=== PATIENT | female | born 1975 | race Caucasian/White ===

== ENCOUNTER 2025-07-15 15:53 | Outpatient (AMB) | payer OTHER, SELFPAY ==
--- NOTE | 2025-07-15 15:54 | A.OFFVIS_ITS ---
Intake Visit Reasons: 1 yr Allergies carbamazepine (From Tegretol) Allergy (Unknown, Verified 07/15/25 15:57) Unknown divalproex sodium (From Depakote) Allergy (Unknown, Verified 07/15/25 15:57) Unknown Sulfa (Sulfonamide Antibiotics) Allergy (Unknown, Verified 07/15/25 15:57) Unknown Medication List - Last Reconciled 07/15/25 by Reyna Hale CNP phenobarbital 64.8 mg (2 x 32.4 mg) PO BEDTIME 90 days HPI Comments Details: She was doing okay. She was taking phenobarbital at bedtime. No medication side effects. No seizures. Sleep was okay. She has a history of seizure disorder for which she is being followed here for 24+ years. She has an idiopathic generalized seizure disorder for which she is taking phenobarbital and has not had any seizures in over 23 years. She has had allergies and reactions to Tegretol and Depakote in the past. [facility] Medical History (Updated 07/15/25 @ 15:56 by Reyna Hale CNP) Seizures Review of Systems Const Denies chills, Denies daytime sleepiness, Denies difficulty sleeping, Denies fatigue, Denies fever(s), Denies frequent falls, Denies headache(s), Denies increased appetite, Denies poor appetite, Denies snoring, Denies weakness, Denies weight gain and Denies weight loss Eyes Denies loss of vision ENT Denies vertigo, Denies dizziness, Denies headache(s) and Denies neck pain Card Denies chest pain at rest, Denies chest pain with activity, Denies syncope, Denies leg edema, Denies palpitations, Denies dyspnea and Denies dyspnea on exertion Resp Denies cough, Denies dyspnea, Denies dyspnea on exertion and Denies snoring GI Denies abdominal pain, Denies constipation, Denies heartburn, Denies diarrhea and Denies nausea Denies urinary frequency, Denies urinary incontinence and Denies urinary urgency Musc Denies abnormal gait, Denies back pain, Denies myalgias, Denies arthralgias, Denies neck pain, Denies numbness and Denies tingling Neuro Denies abnormal gait, Denies vertigo, Denies dizziness, Denies syncope, Denies frequent falls, Denies headache(s), Denies lack of coordination, Denies loss of vision, Denies memory loss, Denies numbness, Denies Other visual disturbances, Denies restless legs, Denies seizure-like activity, Denies tingling, Denies paresthesias, Denies tremor(s) and Denies weakness Psych Denies anxiety, Denies depression, Denies auditory hallucinations, Denies memory loss and Denies visual hallucinations Endo Denies fatigue and Denies palpitations Physical Exam Const Other: General Appearance:? normal, in no acute distress. Heart:? S1, S2 normal, no murmurs. Lungs:? clear anteriorly and posteriorly. Musculoskeletal:? normal. Extremities:? no edema. Psych:? alert, oriented, cognitive function intact, cooperative with exam. Neuro Other: Abnormal Neurological Findings:?none.? Mental Status: alert and oriented X 3. Normal attention, orientation, memory, and affect. Cranial Nerves: Pupils are equal, round, and reactive to light. External ocular muscles are intact. Visual nichole are full, no ptosis. Face is symmetrical, no facial weakness or droop. Facial sensations are normal. Tongue protrudes in midline. Palate elevates symmetrically. Shoulder shrugging is normal Motor Examination: Normal muscle tone, bulk and strength. No atrophy or fasciculations. No drift of the extended upper extremities. DTR 2+. Plantars are flexor. Sensory Exam: Normal light touch, temperature, pinprick, vibration, and joint- position sensations. Rhomberg sign is absent. Coordination: No ataxia. No titubation. Gait Exam: Within normal limits. Cerebellar Signs: [id number] is okay. Extrapyramidal System: No tremor, rigidity with normal facial expressions. No bradykinesia. No bradyphrenia. Normal arm swing and posture. No propulsion or retropulsion. Speech: Normal. Assessment & Plan Assessment & Plan (1) Seizure disorder: Code(s): G40.909 - Epilepsy, unspecified, not intractable, without status epilepticus Category: Medical Plan: Continue phenobarbital 32.4mg 2 tablets at bedtime. Coding Level of Care Code Est Pt Level 3 (97365) Diagnoses Seizure disorder G40.909
--- OUTSIDE RECORDS SUMMARY | 2025-07-15 18:29 | XMS_ITS | Clinical Summary ---
Author Organization [facility] Address [address] [place] [address] Care Team Providers Care Stationary Engineer Refrigeration Name Role Phone Pcp, No Primary Care Provider Unavailabl e Allergies Active Allergy Reactions Criticality Noted Date Comments Carbamazepine GI Intolerance/Nausea/Vomi ting Low 03/16/2023 Sulfa Antibiotics Hives Medium 11/16/2011 Either rash or gi upset Medications PHENobarbital (LUMINAL) 32.4 MG tablet Take 64.8 mg by mouth nightly. 01/13/20 23 Active buPROPion (WELLBUTRIN XL) 300 MG 24 hr tablet bupropion HCl XL 300 mg 24 hr tablet, extended release 01/28/20 23 Active levonorgestrel (MIRENA) 20 mcg/24hr IUD 1 each by Intrauterine route. 01/19/20 21 026 Active levothyroxine (SYNTHROID, LEVOTHROID) 25 MCG tablet levothyroxine 25 mcg tablet 10/27/19 23 Active amitriptyline (ELAVIL) 25 MG tablet 01/28/20 23 Active tobramycin-dexamet hasone (TOBRADEX) 0.3-0.1 % ophthalmic suspensionIndicati ons:Acute bacterial conjunctivitis of left eye Administer 1 drop into the left eye every 4 (four) hours while awake. 5 mL 03/16/20 23 Active Active Problems No known active problems Social History Tobacco Use Types Packs/Day Years Used Date Smoking Tobacco: Never Assessed Comments Unknown Sex and Gender Information Value Date Recorded Sex Assigned at Female 03/16/2023 1:54 PM EDT Legal Sex Female 10:17 AM EDT Gender Identity Female 03/16/2023 1:54 PM EDT Sexual Orientation Choose not to disclose 2022 1:54 PM EDT Last Filed Vital Signs Vital Sign Reading Time Taken Comments Blood Pressure 153/89 03/16/2023 10:57 AM EDT Pulse 86 03/16/2023 10:57 AM EDT Temperature 36.8 C (98.2 F) 03/16/2023 10:57 AM EDT Respiratory Rate 16 03/16/2023 10:57 AM EDT Oxygen Saturation 98% 03/16/2023 10:57 AM EDT Inhaled Oxygen Concentration - - Weight - - Height - - Body Mass Index - - Plan of Treatment Health Maintenance Due Date Last Done Comments Hepatitis C Virus Screening 1973 HIV Screening 1986 DTaP/Tdap/Td Vaccines (1 - Tdap) 1992 Hepatitis B Vaccines (1 of 3 - 19+ 3-dose series) 1992 Pap Smear (Ages 21-65) 1994 Mammogram 2013 Colonoscopy 2018 Pneumococcal Vaccines 50+ (1 of 1 - PCV) 2023 Zoster (Shingles) Vaccine (1 of 2) 2023 Influenza Vaccine 05/23/2025 11/23/2016, 07/20/2015 COVID-19 Vaccine ( season) 2025 10/29/2021, 02/05/2021, 01/14/2021 Insurance [facility] Care Teams Stationary Engineer Refrigeration Relationship Specialty Start Date End Date Pcp, [address] [place] [address] PCP - General 03/01/23
--- OUTSIDE RECORDS SUMMARY | 2025-07-15 18:29 | XMS_ITS | Clinical Summary ---
Author Organization [facility] Address [address] [place] [address] Care Team Providers Care Category Specialist Name Role Phone Jimmy Teresa DO Primary Care Provider [phone] Surgical History Surgery Date Site/Laterality Comments TUBAL LIGATION 2009 PROCEDURE: HISTORICAL TUBAL LIGATION CHOLECYSTECTOMY 2009 PROCEDURE: HISTORICAL CHOLECYSTECTOMY SECTION 2001, 2009 PROCEDURE: HISTORICAL Medical History Medical History Date Comments Seizures (CMS/HCC V24, CMS/HCC V28) DX:Seizures (HCC); COMMENT: last when Dr Briggs ([place]) IUD (intrauterine device) in place 08/2014 DX:IUD (intrauterine device) in place Hypothyroid DX:Hypothyroid Depression DX:Depression Family History Medical History Relation Name Comments Other: brain tumor Aunt maternal Diabetes Father Other: pancreatic cancer Father Diabetes Maternal Grandmother Thyroid disease Mother Asthma Son Breast cancer Neg Hx Colon cancer Neg Hx Ovarian cancer Neg Hx Uterine cancer Neg Hx Relation Name Status Comments Aunt Brother Alive asthma Daughter Alive healthy Father DM Maternal Grandfather Maternal Grandmother Alive DM Mother Alive thyroid Paternal Grandfather Paternal Grandmother Son Alive healthy Social History Tobacco Use Types Packs/Day Years Used Date Smoking Tobacco: Never Smokeless Tobacco: Never Alcohol Use Standard Drinks/Week Comments No 0 (1 standard drink = 0.6 oz pur e alcohol) Comments Unknown Sex and Gender Information Value Date Recorded Sex Assigned at Not on file Legal Sex Female 10:40 AM EST Gender Identity Not on file Sexual Orientation Not on file Obstetrics History Last Filed Vital Signs Vital Sign Reading Time Taken Comments Blood Pressure 131/91 07/21/2023 10:43 AM EDT Pulse 92 07/21/2023 10:43 AM EDT Temperature - - Respiratory Rate - - Oxygen Saturation - - Inhaled Oxygen Concentration - - Weight 66.7 kg (147 lb) 07/21/2023 10:43 AM EDT Height 148.6 cm (4' 10.5 ) 06/16/2023 8:26 AM ED T Body Mass Index 30.2 06/16/2023 8:26 AM EDT Plan of Treatment Health Maintenance Due Date Last Done Comments Hepatitis B Vaccines (1 of 3 - 19+ 3-dose series) 1992 Cervical Cancer Screening: Pap Smear 11/22/2021 11/22/2018 Colorectal Cancer Screening: Colonoscopy 10/01/2022 HIV Screening 10/01/2022 Hepatitis C Screening 10/01/2022 Social Influencers of Health Screening 10/01/2022 Breast Cancer Screening 12/08/2022 12/08/19 21, 12/03/2019, 11/29/2018, Additional history exists Pneumococcal Vaccine: 50+ Years (1 of 1 - PCV) 2023 Zoster Vaccines (1 of 2) 2023 Depression Screening 10/23/2024 COVID-19 Vaccine ( season) 2025 10/29/2021, 02/05/2021, 01/14/2021 Influenza Vaccine (#1) 2025 , 08/12/2021, 08/26/2019, Additional history exists DTaP,Tdap,and Td Vaccines (3 - Td or Tdap) 10/27/2032 10/27/2022, 11/16/2011 HIB Vaccines Aged Out No longer eligi ble based on patient's age to complete this topic HPV Vaccines Aged Out No longer eligi ble based on patient's age to complete this topic Hepatitis A Vaccines Aged Out No long er eligible based on patient's age to complete this topic IPV Vaccines Aged Out No longer eligi ble based on patient's age to complete this topic MMR Vaccines Aged Out No longer eligi ble based on patient's age to complete this topic Meningococcal ACWY Vaccine Aged Out N o longer eligible based on patient's age to complete this topic Meningococcal B Vaccine Aged Out No l onger eligible based on patient's age to complete this topic RSV Immunization Patients Under 20 months Aged Out No longer eligible based on patient's age to complete this topic Varicella Vaccines Aged Out No longer eligible based on patient's age to complete this topic Procedures Procedure Name Priority Date/Time Associated Diagnosis Comments SCR MAMMO BI INCL CAD Routine 12/08/2020 1:53 PM EST Encounter for screening mammogram for malignant neoplasm of breast PAP SMEAR Routine 11/22/2018 from Last 3 Months or Most Recently Relevant to Health Maintenance Results * SCR MAMMO BI INCL CAD (12/08/2020 1:53 PM EST) Anatomical Region Laterality Modality Radiographic Gisela ging 12/03/2019 1:37 PM EST Narrative 12/09/2020 12:27 PM EST This is a summary report. The complete report is available in the patient's medical record. If you cannot access the medical record, please contact the sending organization for a detailed fax or copy. BILATERAL 2D DIGITAL SCREENING MAMMOGRAM History: Routine screening. No current breast complaints. No family history of breast cancer. Comparison: Multiple priors dating back to 11/23/2015 Technique: Bilateral full-field digital mammography was performed using standard CC and MLO projections, right breast exaggerated cc view CAD was used to evaluate this mammogram. Findings: Density: The breasts are heterogeneously dense which may obscure small masses-C RIGHT: No suspicious masses, groups of microcalcification or areas of architectural distortion identified. Stable typically benign parenchymal asymmetries LEFT: No suspicious masses, groups of microcalcifications or areas of architectural distortion identified. Stable typically benign parenchymal asymmetries IMPRESSION: : 1. No mammographic evidence of malignancy. BI-RADS Category 2 benign findings Recommendation: Routine annual screening mammography is recommended Procedure Note Rj Silva MD - 10/11/2022 This is a summary report. The complete report is available in thepatient's medical record. If you cannot access the medical record, pleasecontact the sending organization for a detailed fax or copy. BILATERAL 2D DIGITAL SCREENING MAMMOGRAM History: Routine screening. No current breast complaints. No familyhistory of breast cancer. Comparison: Multiple priors dating back to 11/23/2015 Technique: Bilateral full-field digital mammography was performed usingstandard CC and MLO projections, right breast exaggerated cc view CAD was used to evaluate this mammogram. Findings: Density: The breasts are heterogeneously dense which may obscure smallmasses-C RIGHT: No suspicious masses, groups of microcalcification or areas ofarchitectural distortion identified. Stable typically benign parenchymalasymmetries LEFT: No suspicious masses, groups of microcalcifications or areas ofarchitectural distortion identified. Stable typically benign parenchymalasymmetries IMPRESSION: : 1. No mammographic evidence of malignancy. BI-RADS Category 2 benign findings Recommendation: Routine annual screening mammography is recommended us Stephanie Prakash MD IMG XR PROCEDURES Final Result * Pap smear (11/22/2018) 11/22/2018 Narrative HISTORICAL TESTING LAB RESULTING AGENCY - 11/26/2018 5:25 PM EST [id number] THINPREP PAP, IMAGED: NEGATIVE FOR SQUAMOUS INTRAEPITHELIAL LESION AND MALIGNANCY . PALAK IS PRESENT. MANOJ BAXTER , CT(ASCP) (CASE ELECTRONICALLY SIGNED 11 26 2018) RESULT OF APTIMA HIGH RISK HPV ASSAY: HIGH RISK HPV: NEGATIVE (SEROTYPES 16,18,31,33,35,39,45,51,52,56,58,59,66,68) COMPLETED ON 2018-11-26 ADEQUACY: SATISFACTORY ENDOCERVICAL/TRANSFORMATION ZONE COMPONENT ABSENT. SOURCE: THINPREP PAP HPV ANY DX: REFLEX 16 AND 18, CERVICAL, IMAGED CLINICAL INFORMATION: HPV ANY DIAGNOSIS. Z12.4, Z01.419, PAP HX: 08/19/14= NEG, HPV NEG us Eliza Hinds MD LAB CYTOLOGY ORDERABLES Final R esult HISTORICAL TESTING LAB RESULTING AGENCY from Last 3 Months or Most Recently Relevant to Health Maintenance Care Teams Category Specialist Relationship Specialty Start Date End Date Jimmy Teresa DO PCP - General Internal Medicine 03/14/22
== END 2025-07-15 16:20 | disposition home or self-care (01) ==
LOC: HO.HSM 15:53
PROVIDERS: PCP Internal Medicine; Visit Provider Registered Nurse
DX: G40.909 Epilepsy, unspecified, not intractable, without status epilepticus (principal)
CPT/HCPCS: 99213